=== PATIENT | female | born 1950 | race Two or more races ===

== ENCOUNTER 2017-05-26 15:24 | Emergency (ER) | payer MEDICAID, OTHER ==
[~2017-05-26] VITALS: Ht 160 cm; Wt 81.6 kg
[2017-05-26 15:41] VITALS: BP 138/90
[2017-05-26] MEDS ORDERED: KETOROLAC TROMETH 60MG/2ML VIAL IM ONE (17:00)
[2017-05-26] MEDS ORDERED: LORazepam 2MG/ML-1ML VIAL IM ONE (17:30)
== END 2017-05-26 18:25 | disposition home or self-care (01) ==
LOC: EDBD 15:24 → ER 15:33
DX: S70.02XA Contusion of left hip, initial encounter (principal); M54.2 Cervicalgia; M47.892 Other spondylosis, cervical region; M19.90 Unspecified osteoarthritis, unspecified site; Z88.6 Allergy status to analgesic agent; W19.XXXA Unspecified fall, initial encounter; Y93.89 Activity, other specified; Y99.8 Other external cause status; Y92.89 Other specified places as the place of occurrence of the external cause
CPT/HCPCS: 70450; 72125; 73502; 73562; 96372; 99284; J1885

== ENCOUNTER 2017-06-18 16:21 | Emergency (ER) | payer MEDICAID ==
[~2017-06-18] VITALS: Ht 160 cm; Wt 84.4 kg
[2017-06-18 16:57] VITALS: BP 137/85
[2017-06-18 17:05] LABS: Basophils # (auto) 0 uL; Basophils % (auto) 0.4 % (0.0-2.0); Eosinophils # (auto) 0.2 uL; Eosinophils % (auto) 2.4 % (0.0-7.0); Hematocrit 42.8 % (36.0-46.0); Hemoglobin 14.6 g/dL (12.2-16.2); Lymphocytes # (auto) 2.6 uL; Lymphocytes % (auto) 27.5 % (10.0-50.0); Mean Corpuscular Hemoglobin 33.1 pg (28.0-32.0); Mean Corpuscular Hgb Conc. 34.2 g/dL (32.0-36.0); Mean Corpuscular Volume 96.7 fL (80.0-100.0); Mean Platelet Volume 7.4 fL (6.9-10.8); Monocytes # (auto) 0.5 uL; Monocytes % (auto) 5.7 % (0.0-12.0); Nucleated Red Blood Cells % 0.1 %; Platelet Count (auto) 223 10^3/uL (140-450); Red Cell Distribution Width 13.2 % (11.8-14.3); White Blood Cell 9.3 10^3/uL (4.4-10.8)
[2017-06-18 17:20] LABS: Albumin 3.9 g/dL (3.4-5.0); INR 1.05 (0.9-1.15); Partial Thromboplastin Time 29.5 sec (22.64-33.71); Potassium 3.7 mmol/L (3.5-5.1); Prothrombin Time 11.5 sec (9.37-12.3)
[2017-06-18 17:22] LABS: BUN/Creatinine Ratio 17.1
[2017-06-18 17:24] LABS: Bilirubin, Total 1.1 mg/dL (0.2-1.0); Total Protein 7.5 g/dL (6.4-8.2)
== END 2017-06-18 19:24 | disposition home or self-care (01) ==
LOC: ER 16:30
DX: M79.605 Pain in left leg (principal); Z90.49 Acquired absence of other specified parts of digestive tract; Z88.6 Allergy status to analgesic agent; W01.0XXA Fall on same level from slipping, tripping and stumbling without subsequent striking against object, initial encounter; Y93.89 Activity, other specified; Y99.8 Other external cause status; Y92.89 Other specified places as the place of occurrence of the external cause
CPT/HCPCS: 36415; 80053; 85025; 85379; 85610; 85730; 93971

== ENCOUNTER 2025-06-20 08:38 | Emergency (ER) | payer OTHER, MEDICAID ==
[~2025-06-20] VITALS: Ht 160 cm; Wt 77.3 kg
--- NOTE | 2025-06-20 09:14 | ED.PDOC ---
Musculoskeletal HPI Comments A 74 YEAR OLD FEMALE PRESENTS TO THE ED WITH COMPLAINT OF KNEE PAIN. PATIENT REPORTS THAT SHE HAS BEEN EXPERIENCING LEFT SIDED KNEE PAIN AFTER HER DOG HAD RAN INTO HER LEG YESTERDAY, CAUSING HER TO TWIST HER KNEE. PATIENT DENIES ANY FALL INJURY, NUMBNESS, WEAKNESS, TINGLING, SHORTNESS OF BREATH, CHEST PAIN, ABDOMINAL PAIN, NAUSEA, VOMITING, HEADACHE, OR OTHER COMPLAINTS. NO OTHER SYMPTOMS OR MODIFYING FACTORS AT THIS TIME. PATIENT IS ALERT, ORIENTED X 4, AND HAS STEADY GAIT. Chief Complaint: Lower Extremity Time Seen by MD: 09:13 Primary Care Provider: TEMITOPE Reviewed Notes: Nurses Notes, Medications, Allergies Allergies: Coded Allergies: Codeine (Verified Allergy, Unknown, 06/20/17) Home Meds Active Scripts Acetaminophen (Tylenol Extra Strength Fo) 500 Mg Tab, 1000 MG PO BID, #60 TAB Prov:MARY ALICE RAZA 06/20/25 Information Source: Patient Mode of Arrival: Ambulatory Location: Left Extremity Location: Knee Timing: Days Prehospital treatment: None Severity: Moderate Able to Move Extremity: Yes Bear Weight: Limited Pain: Moderate Mechanism: Twisting Circumstances: Other (DOG RAN INTO HER) Onset of Symptoms: After Trauma Symptoms: Swelling, Pain DVT Risk Factors: NONE Last Tetanus: Unknown Associated signs and symptoms: None Past Medical History PAST MEDICAL HISTORY: Denies Surgical History: Cholecystectomy 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 Family History Family History: Reviewed,noncontributory to illness Social History Smoker: Non-Smoker Alcohol: Denies ETOH Use Drugs: Denies Drug Use Lives In: Home Constitutional: denies: chills, diaphoresis, fatigue, fever, malaise, sweats, weakness, others EENTM: denies: blurred vision, double vision, ear bleeding, ear discharge, ear drainage, ear pain, ear ringing, eye pain, eye redness, hearing loss, mouth pain, mouth swelling, nasal discharge, nose bleeding, nose congestion, nose pain, photophobia, tearing, throat pain, throat swelling, voice changes, others Respiratory: denies: cough, hemoptysis, orthopnea, SOB at rest, shortness of breath, SOB with excertion, stridor, wheezing, others Cardiovascular: denies: chest pain, dizzy spells, diaphoresis, Dyspnea on exertion, edema, irregular heart beat, left arm pain, lightheadedness, palpitations, PND, syncope, others Gastrointestinal: denies: abdomen distended, abdominal pain, blood streaked bowels, constipated, diarrhea, dysphagia, difficulty swallowing, hematemesis, melena, nausea, poor appetite, poor fluid intake, rectal bleeding, rectal pain, vomiting, others Genitourinary: denies: abnormal vagina bleeding, burning, dyspareunia, dysuria, flank pain, frequency, hematuria, incontinence, pain, , vagina discharge, urgency, others Neurological: denies: dizziness, fainting, headache, left sided numbness, left sided weakness, numbness, paresthesia, pre-existing deficit, right sided numbness, right sided weakness, seizure, speech problems, tingling, tremors, weakness, others Musculoskeletal: reports: joint pain, others (LT KNEE PAIN); denies: back pain, gout, joint swelling, muscle pain, muscle stiffness, neck pain Integumetry: denies: bruises, change in color, change in hair/nails, dryness, laceration, lesions, lumps, rash, wounds, others Allergic/Immunocompromised: denies: Difficulty Healing, Frequent Infections, Hives, Itching, others Hematologic/Lymphatic: denies: anemia, blood clots, easy bleeding, easy bruising, swollen glands, others Endocrine: denies: excessive hunger, excessive sweating, excessive thirst, excessive urination, flushing, intolerance to cold, intolerance to heat, unexplained weight gain, unexplained weight loss, others Psychiatric: denies: anxiety, bipolar disorder, depression, hopeless, panic disorder, schizophrenia, sleepless, suicidal, others All Other Systems: Reviewed and Negative Physical Exam General Appearance: No Apparent Distress, Normal HEENT: Normal ENT Inspection, PERRL/EOMI, Pharynx Normal, TMs Normal Neck: Full Range of Motion, Non-Tender, Normal, Normal Inspection Respiratory: Chest Non-Tender, Lungs Clear, No Accessory Muscle Use, No Respiratory Distress, Normal Breath Sounds Cardiovascular: No Edema, No JVD, No Murmur, No Gallop, Normal Peripheral Pulses, Regular Rate/Rhythm Breast Exam: Deferred Gastrointestinal: No Organomegaly, Non Tender, No Pulsatile Mass, Normal Bowel Sounds, Soft Genitalia: Deferred Pelvic: Deferred Rectal: Deferred Extremities: Decreased range of motion (SLIGHTLY ), No calf tenderness, Normal capillary refill, No pedal edema, Tender (ON LEFT KNEE, NO BONY TENDERNESS, S WELLING AND DEFORMITY. ) Musculoskeletal : Apperance: Normal Neurologic: Alert, family and marriage counsellor II-XII nml as Tested, No Motor Deficits, Normal Affect, Normal Mood, No Sensory Deficits Cerebellar Function: Normal Reflexes: Normal Skin: Dry, Normal Color, Warm Peripheral Pulses: 2+ carotid (R), 2+ carotid (L), 2+ dorsalis pedis (R), 2+ dorsalis pedis (L) Lymphatic: No Adenopathy Was a procedure done? Was a procedure done?: No Differential Diagnosis EXT Differential Diagnosis: Fracture, Sprain, Contusion, Strain, Arthritis, Bursitis X-Ray, Labs, Meds, VS Vital Signs Date Time Temp Pulse Resp B/P (MAP) Pulse Ox O2 Delivery O2 Flow Rate FiO2 06/20/25 09:45 65 18 97 Room Air 06/20/25 09:45 97.1 65 18 163/79 (107) 97 97.1 06/20/25 08:40 97.9 75 18 148/91 97 97.9 Current Medications Medications (Trade) Dose Ordered Sig/Franklin Route Start Time Stop Time Status Last Admin Acetaminophen (Tylenol Tablet Or Capsule) 1,000 mg ONCE ONCE PO 06/20/25 09:15 06/20/25 09:16 DC 06/20/25 09:31 [place] [address] Ph: [phone] DIAGNOSTIC IMAGING Diagnostic Imaging Report : [id number] Signed PATIENT: SHAAN IVY ACCT: [id number] UNIT: [id number] : 1950 LOC: ER ROOM / BED: / AGE / SEX: 74 / F ADM STATUS: REG ER SERVICE 0911 ORDERING PHYSICIAN: MARY ALICE RAZA PROCEDURE(s): LKNE3 - L KNEE 3V XRAY REASON: INJURY ORDER NUMBER(s): [id number], ACCESSION NUMBER(s): [id number] EXAM: XY L KNEE 3V XRAY CLINICAL INDICATION: INJURY TECHNIQUE: XY L KNEE 3V XRAY Comparison: None FINDINGS/IMPRESSION: There is no evidence of acute fracture or dislocation. Moderate left knee tricompartmental joint space narrowing The alignment is anatomical. There is no radiopaque foreign body. ATED BY: RYAN DAHL MD DICTATED DATE/TIME: 06/20/25942 SIGNED BY: RYAN DAHL MD SIGNED DATE/TIME: 06/20/25942 CC: X-Ray, Labs, Meds, VS Comment EXTERNAL MEDICAL RECORDS REVIEWED: [NONE] INDEPENDENT HISTORIANS: [NONE] SOCIAL DETERMINANTS OF HEALTH: [NONE] LABS ORDERED: NONE REVIEWED AND INTERPRETED RESULTS: LT KNEE XR IMAGING ORDERED: LT KNEE XR: NO FX AND DISLOCATION, MILD DJD OF LEFT KNEE, READ BY ME, PENDING RADIOLOGIST READING. TREATMENTS ORDERED: TYLENOL 1GM PO PROCEDURES PERFORMED: NONE CRITICAL CARE TIME: NONE I HAVE DISCUSSED THE PATIENT WITH THE ATTENDING PHYSICIAN, DR. TANNER, HE AGREES WITH THE PATIENT'S PLAN OF CARE AND DISPOSITION. BASED ON HISTORY OF PRESENT ILLNESS, AND PHYSICAL EXAM, PATIENT WILL BE DISCHARGED HOME. DISCUSSED PLAN FOR DISCHARGE HOME WITH RX [TYLENOL 1000MG]. MEDICATION WARNINGS GIVEN. SHARED DECISION MAKING: DISCUSSED WITH PATIENT THAT THEIR WORKUP WAS NORMAL. LILLIAM MOJICA INSTRUCTED TO FOLLOW UP WITH PRIMARY CARE PROVIDER IN 1-2 DAYS FOR RE- EVALUATION OF SYMPTOMS. PATIENT VERBALIZES UNDERSTANDING TO RETURN TO ED FOR NEW OR WORSENING SYMPTOMS OR IF FOLLOW UP WITH PCP CANNOT BE OBTAINED. PATIENT FEELS COMFORTABLE GOING HOME AT THIS TIME. ALL QUESTIONS ADDRESSED AT TIME OF DISCHARGE. Time of 1ST Reevaluation: 09:45 Reevaluation 1ST: Improved Patient Education/Counseling: Diagnosis, Treatment, Need For Follow Up Family Education/Counseling: Diagnosis, Treatment, No Family Present Medical Screening: No EMC Exist At This Time Departure 1 Departure Time of Disposition: 09:45 Impression: Primary Impression: Sprain of left knee Qualified Codes: S83.8X2A - Sprain of other specified parts of left knee, initial encounter Additional Impression: Degenerative joint disease of left knee Qualified Codes: M17.12 - Unilateral primary osteoarthritis, left knee Disposition: HOME / SELF CARE / HOMELESS Condition: Stable Additional Instructions: FOLLOW-UP WITH PCP IN 1 TO 2 DAYS. TAKE MEDICATIONS PRESCRIBED. RETURN TO ED FOR ANY NEW OR WORSENING SYMPTOMS. e-Prescriptions Acetaminophen (Tylenol Extra Strength Fo) 500 Mg Tab 1000 MG PO BID, #60 TAB Prov: MARY ALICE RAZA 06/20/25 Discharged With: Self Critical Care Note Critical Care Time?: No Stability Stability form required: No Heart Score Heart Score: Heart Score Response (Comments) Value History N/A 0 EKG N/A 0 Age N/A 0 Risk Factors N/A 0 Troponin N/A 0 Total 0 I personally scribed for MARY ALICE RAZA ([email or web address]) on 06/20/25 at 09:14. Electronically submitted by Jayson Pinto ([email or web address]). I personally scribed for JIMMY TANNER MD ([email or web address]) on 06/20/25 at 09:47. Electronically submitted by Jayson Pinto ([email or web address]). MARY ALICE RAZA Jun 20, 2025 09:14 JIMMY TANNER MD Jun 20, 2025 09:47
[2025-06-20] MEDS: ACETAMINOPHEN 500 MG TAB or CAP PO ONE (09:31)
[2025-06-20 09:45] VITALS: BP 163/79; PULSE 65; RESP 18; TEMP 97.1; O2SAT 97
[2025-06-20] MEDS ORDERED: ACET-1304 PO (09:45)
--- NOTE | 2025-06-20 09:46 | DVH ---
EXAM: XY L KNEE 3V XRAY CLINICAL INDICATION: INJURY TECHNIQUE: XY L KNEE 3V XRAY Comparison: None FINDINGS/IMPRESSION: There is no evidence of acute fracture or dislocation. Moderate left knee tricompartmental joint space narrowing The alignment is anatomical. There is no radiopaque foreign body.
== END 2025-06-20 09:55 | disposition home or self-care (01) ==
LOC: ER 08:38
DX: M25.562 Pain in left knee (principal); Z88.5 Allergy status to narcotic agent; Z90.49 Acquired absence of other specified parts of digestive tract; X50.1XXA Overexertion from prolonged static or awkward postures, initial encounter; Y93.89 Activity, other specified; Y92.89 Other specified places as the place of occurrence of the external cause; Y99.8 Other external cause status
CPT/HCPCS: 73562

== ENCOUNTER 2025-07-28 01:06 | Inpatient (IN) | payer OTHER, MEDICAID ==
[2025-07-28] VITALS (8 sets, daily range): BP systolic 109–154; BP diastolic 65–97; PULSE 58–70; RESP 16–20; TEMP 97.2–98.1; O2SAT 93–100
[~2025-07-28] VITALS: Ht 160 cm; Wt 85.5 kg
[~2025-07-28 01:06] MED LIST: ACET-1304 PO
[2025-07-28 02:05] LABS: Hematocrit 38.5 % (36.0-46.0); Hemoglobin 13.4 g/dL (12.2-16.2); Mean Corpuscular Hemoglobin 32.7 pg (28.0-32.0); Mean Corpuscular Volume 93.7 fL (80.0-100.0); Nucleated Red Blood Cells % 0.0 %
[2025-07-28 02:25] LABS: Alanine Aminotransferase 38 U/L (7-40); Albumin 4.2 g/dL (3.2-4.8); Alkaline Phosphatase 95 U/L (46-116); Anion Gap 8 (5-15); BUN/Creatinine Ratio 17.1 (10.0-20.0); Bilirubin, Total 0.9 mg/dL (0.2-1.0); Blood Urea Nitrogen 12 mg/dL (9-23); Calcium 9.1 mg/dL (8.7-10.4); Carbon Dioxide 24 mmol/L (20-31); Chloride 104 mmol/L (98-107); Glucose 109 mg/dL (74-106); Lipase 34 U/L (12-53); Magnesium 1.9 mg/dL (1.6-2.6); Potassium 3.5 mmol/L (3.5-5.1); Sodium 136 mmol/L (136-145); Total Protein 6.9 g/dL (5.7-8.2)
--- NOTE | 2025-07-28 02:43 | ED.PDOC ---
GI ASSESSMENT HPI Comments HPI: Poor Historian. 74-year-old female brought in by her daughter for evaluation of left upper quadrant left lower ribcage pain with the associated nausea and vomiting nonbilious nonbloody. Since she started vomiting she said she started feeling some left upper extremity numbness and tingling but no weakness. Denies any other acute symptoms. Past Medical History: Past Surgical History: Cholecystectomy REVIEW OF SYSTEMS: CONSTITUTIONAL: Denies acute: fever, diaphoresis, chills, generalized weakness. HEAD: Denies acute: headache, photophobia Eyes: Denies acute: Double vision, vision loss, eye pain, eye discharge. EARS: Denies acute: tinnitus, hearing loss, ear discharge, ear pain, THROAT: Denies acute: sore throat, swelling, difficulty swallowing , pain with swallowing, change in voice. NECK: Denies acute: neck pain, neck swelling, stiff neck. HEART: Denies acute : palpitations, LUNGS: Denies acute: SOB, wheezing, cough, hemoptysis ABDOMEN: Denies acute: diarrhea, melena , hematemesis, hematochezia SKIN: Denies acute: rash, redness, lesions, itchiness. EXTREMITIES: Denies acute: calf pain, weakness, denies pain in extremity. Denies acute: Low back pain. Neuro: Denies acute: focal neurological deficit, motor or sensory focal neurological deficit, tremors, seizure like activity, confusion, dizziness, change in mental status, loss of bowel or bladder function, cauda equina like symptoms. : Denies acute: dysuria, hematuria, flank pain, increase in urinary frequency. PSYCH: Denies acute: hallucination, suicidal ideation, homicidal ideation. FEMALE: Denies acute: abnormal vaginal bleeding, foul odor, unusual discharge. PHYSICAL EXAM: General: -----mild---acute distress, awake and alert. Head: normocephalic, atraumatic. No raccoon's eyes, no ramos sign. Neck: supple, trachea is midline, no swelling. Throat: Normal phonation. Eyes:, no erythema, no purulent discharge, no proptosis, no icterus. Heart: regular rate, regular rhythm, no significant murmur appreciated. Lungs: no apparent respiratory distress, Able to speak in full sentences. No wheezing, no rhonchi, no crackles. No stridors Clear to auscultation bilaterally. Abdomen: non tender to palpation, non distended, soft, no guarding, no rebound, + bowel sounds. The area of pain is actually in the mid clavicular lower ribcage area not in the soft tissue of the abdomen but in the ribcage itself. No apparent lesions or redness or swelling or findings to suggest shingles Neuro: Awake, Alert, oriented to name, self, situation, follows commands GCS=15. Speech is normal. Skin: no petechia, no purpura, no cyanosis, non-pale, not jaundice. Lower extremities: --no - Pitting edema no deformity, no focal swelling, no calf TTP. Makes eye contact. moves all four extremities. Face: no apparent facial droop. No CVA tenderness to percussion bilaterally. 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 Although this document has been carefully reviewed, there might still be some phonetic and typographical errors. Occasional wrong-word or "sound-alike" substitutions may have occurred due to the inherent limitations of voice recognition software. These areas are purely typographical due to imperfections of the software programs and do not reflect any compromise in the patient's medical care. Please read the chart carefully and recognize, using context, where these substitutions have occurred. 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 Family History Family History: Reviewed,noncontributory to illness Social History Smoker: Non-Smoker Alcohol: Denies ETOH Use Drugs: Denies Drug Use Lives In: Home GI differential Dx Differential Diagnosis: Other (Ddx include but not limitied to gastritis, musculoskeletal pain, radiculopathy, atypical chest pain, dissection, aneurysm, ACS, unstable angina, hiatal hernia, GERD, anxiety, costochondritis, PE, pneumothroax, neoplasm, cardiac ischemia, drug abuse, anemia.) X-Ray, Labs, Meds, VS Vital Signs Date Time Temp Pulse Resp B/P (MAP) Pulse Ox O2 Delivery O2 Flow Rate FiO2 07/28/25 03:42 68 20 98 Room Air* 0 21 07/28/25 03:38 98.0 68 20 167/76 (106) 98 98.0 07/28/25 01:07 97.0 87 20 167/105 99 97.0 Lab Test 07/28/25 02:55 07/28/25 02:44 07/28/25 01:47 Range/Units Urine Color Colorless Yellow Urine Clarity Turbid H Clear Urine pH 6.5 5.0-9.0 Urine Specific [place] 1.006 1.001-1.035 Urine Protein Negative Negative Urine Ketones Negative Negative Urine Blood Negative Negative /uL Urine Nitrite Negative Negative Urine Bilirubin Negative Negative Urine Urobilinogen Normal Negative mg/dL Urine Leukocyte Esterase 2+ Negative /uL Urine RBC 3 0 - 4 /hpf Urine Microscopic WBC 13 H 0-5 /HPF Urine Squamous Epithelial Cells Mod <5 /hpf Urine Bacteria None seen None Seen /hpf Urine Glucose Normal Normal mg/dL Troponin I High Sensitivity < 3 L < 3 L </=34 ng/L White Blood Count 8.6 4.4-10.8 10^3/uL Red Blood Count 4.11 4.0-5.20 10^6/uL Hemoglobin 13.4 12.2-16.2 g/dL Hematocrit 38.5 36.0-46.0 % Mean Corpuscular Volume 93.7 80.0-100.0 fL Mean Corpuscular Hemoglobin 32.7 H 28.0-32.0 pg Mean Corpuscular Hemoglobin Concent 34.9 32.0-36.0 g/dL Red Cell Distribution Width 13.2 11.8-14.3 % Platelet Count 198 140-450 10^3/uL Mean Platelet Volume 7.4 6.9-10.8 fL Neutrophils (%) (Auto) 60.0 37.0-80.0 % Lymphocytes (%) (Auto) 30.0 10.0-50.0 % Monocytes (%) (Auto) 6.9 0.0-12.0 % Eosinophils (%) (Auto) 2.6 0.0-7.0 % Basophils (%) (Auto) 0.5 0.0-2.0 % Neutrophils # (Auto) 5.2 1.6-8.6 10 ^3/uL Lymphocytes # (Auto) 2.6 0.4-5.4 10 ^3/uL Monocytes # (Auto) 0.6 0-1.3 10 ^3/uL Eosinophils # (Auto) 0.2 0-0.8 10 ^3/uL Basophils # (Auto) 0 0-0.2 10 ^3/uL Nucleated Red Blood Cells 0.0 % Sodium Level 136 136-145 mmol/L Potassium Level 3.5 3.5-5.1 mmol/L Chloride Level 104 98-107 mmol/L Carbon Dioxide Level 24 20-31 mmol/L Anion Gap 8 5-15 Blood Urea Nitrogen 12 9-23 mg/dL Creatinine 0.70 0.550-1.02 mg/dL Glomerular Filtration Rate Calc 92 >90 mL/min BUN/Creatinine Ratio 17.1 10.0-20.0 Serum Glucose 109 H 74-106 mg/dL Lactic Acid Level 1.3 0.4-2.0 mmol/L Calcium Level 9.1 8.7-10.4 mg/dL Magnesium Level 1.9 1.6-2.6 mg/dL Total Bilirubin 0.9 0.2-1.0 mg/dL Aspartate Amino Transferase (AST) 35 13-40 U/L Alanine Aminotransferase (ALT) 38 7-40 U/L Alkaline Phosphatase 95 46-116 U/L Total Protein 6.9 5.7-8.2 g/dL Albumin 4.2 3.2-4.8 g/dL Lipase 34 12-53 U/L Current Medications Medications (Trade) Dose Ordered Sig/Franklin Route Start Time Stop Time Status Last Admin Sodium Chloride 1,000 ml @ 1,000 mls/hr Q1H ONCE IV 07/28/25 02:45 07/28/25 03:44 DC 07/28/25 03:55 Ondansetron HCl (Zofran) 8 mg ONCE ONCE IV 07/28/25 02:45 07/28/25 02:49 DC 07/28/25 03:55 Aspirin (Ecotrin Enteric Coated Tablet) 325 mg ONCE ONCE PO 07/28/25 03:00 07/28/25 03:01 DC 07/28/25 03:55 Acetaminophen/ Hydrocodone Bitart ([place] 5/325MG Tab) 1 tab ONCE ONCE PO 07/28/25 04:00 07/28/25 04:01 DC 07/28/25 04:05 [place] [address] Ph: [phone] DIAGNOSTIC IMAGING Diagnostic Imaging Report : [id number] Signed PATIENT: SHAAN IVY ACCT: [id number] UNIT: [id number] : 1950 LOC: ER ROOM / BED: / AGE / SEX: 74 / F ADM STATUS: REG ER SERVICE 9 ORDERING PHYSICIAN: NASRIN MARTIN DO PROCEDURE(s): ABPL - CT AB PEL WO CON-NO ORAL OR IV REASON: abd pain ORDER NUMBER(s): [id number], ACCESSION NUMBER(s): [id number] Exam: CT CT AB PEL WO CON-NO ORAL OR IV History: abd pain Comparison Study: None Technique: Multidetector spiral CT of the chest, abdomen and pelvis was performed from lower neck to pubic symphysis Axial, coronal and sagittal multiplanar reformats were performed by the technologist on a separate worksta tion. Radiation Dose : 1. Chest/Abdomen/Pelvis: CTDIvol 10.23 mGy, DLP 531.47 mGy*cm. Findings: Lower neck: Normal thyroid. Lungs: No focal consolidation, pleural effusion or pneumothorax. Heart/Vascular Structures: Normal heart size. No pericardial effusion. Lymph Nodes: No adenopathy Pleura: No pleural effusion or significant pneumothorax. Liver: The liver is normal in size. No focal lesions. Normal hepatic vascular enhancement. Gallbladder and Biliary Tree: Status post cholecystectomy. Spleen: Unremarkable Pancreas: The pancreas is normal in appearance without focal lesions or abnormal enhancement. Adrenal Glands: Unremarkable Kidneys: Kidneys demonstrate normal symmetric enhancement without focal lesions, calculi or hydronephrosis. 5 mm left interpolar likely angiomyolipoma. Bladder: Unremarkable Bowel: The stomach is grossly normal in appearance. Diverticulosis coli without CT evidence of acute diverticulitis. Small bowel and colon are otherwise normal in caliber and distribution. The appendix is normal. Ascites: Absent Lymphadenopathy: No mesenteric, retroperitoneal or periportal lymphadenopathy. Abdominal Wall and Mesentery: Small fat containing umbilical hernia. Vasculature: The visualized abdominal aorta is normal in size and caliber. Atherosclerotic vascular calcifications. Abdominal and pelvic vessels demonstrate normal enhancement. Pelvic Organs: Unremarkable Musculoskeletal: No aggressive focal bony lesions, acute fractures or dislocation. IMPRESSION: 1. No acute findings involving the chest, abdomen or pelvis. 2. Diverticulosis coli without CT evidence of acute diverticulitis. ATED BY: ROBER PAYTON MD DICTATED DATE/TIME: 07/28/25238 SIGNED BY: ROBER PAYTON MD SIGNED DATE/TIME: 07/28/25238 CC: Time of 1ST Reevaluation: 00:00 Reevaluation 1ST: N/A Patient Education/Counseling: Diagnosis, Treatment Family Education/Counseling: Other Comments MDM: patient presented with the above HPI.-left anterior chest pain-----workup was initiated. patient was found with the above mentioned diagnosis. the following medications were ordered: please refer to order lists of meds and tests obtained by myself Dr. Martin. Patient ED course and VS have been stabilized. Patient has been reassessed in the ED and remained in a stable condition. Pertinent incidental findings were discussed with the patient and/or family. Patient/family voices understanding and is agreeable with plan. Patient has been observed in the ED adequate length of time to insure improvement/stability. Escalation of care considered: Consideration of escalation to observation or admission I ordered aspirin and nitroglycerin but I was informed by the nurse Perlita that the patient refused nitroglycerin. Patient was given [place] for pain control. Patient was ADMITTED to the medicine team for further evaluation and treatment of their presentation. All the reports of any imaging studies that were ordered by myself were reviewed by myself. Departure 1 Departure Time of Disposition: 02:54 Impression: Primary Impression: Left-sided chest pain Disposition: ADMITTED INPATIENT [facility]mit to: [facility] Condition: Guarded Additional Instructions: [place] [address] Ph: [phone] DIAGNOSTIC IMAGING Diagnostic Imaging Report : [id number] Signed PATIENT: IVY,SHAAN Velasquez ACCT: [id number] UNIT: [id number] : 1950 LOC: ER ROOM / BED: / AGE / SEX: 74 / F ADM STATUS: REG ER SERVICE 0130 ORDERING PHYSICIAN: NASRIN MARTIN DO PROCEDURE(s): ABPL - CT AB PEL WO CON-NO ORAL OR IV REASON: abd pain ORDER NUMBER(s): [id number], ACCESSION NUMBER(s): [id number] Exam: CT CT AB PEL WO CON-NO ORAL OR IV History: abd pain Comparison Study: None Technique: Multidetector spiral CT of the chest, abdomen and pelvis was performed from lower neck to pubic symphysis Axial, coronal and sagittal multip lanar reformats were performed by the technologist on a separate workstation. Radiation Dose : 1. Chest/Abdomen/Pelvis: CTDIvol 10.23 mGy, DLP 531.47 mGy*cm. Findings: Lower neck: Normal thyroid. Lungs: No focal consolidation, pleural effusion or pneumothorax. Heart/Vascular Structures: Normal heart size. No pericardial effusion. Lymph Nodes: No adenopathy Pleura: No pleural effusion or significant pneumothorax. Liver: The liver is normal in size. No focal lesions. Normal hepatic vascular enhancement. Gallbladder and Biliary Tree: Status post cholecystectomy. Spleen: Unremarkable Pancreas: The pancreas is normal in appearance without focal lesions or abnormal enhancement. Adrenal Glands: Unremarkable Kidneys: Kidneys demonstrate normal symmetric enhancement without focal lesions, calculi or hydronephrosis. 5 mm left interpolar likely angiomyolipoma. Bladder: Unremarkable Bowel: The stomach is grossly normal in appearance. Diverticulosis coli without CT evidence of acute diverticulitis. Small bowel and colon are otherwise normal in caliber and distribution. The appendix is normal. Ascites: Absent Lymphadenopathy: No mesenteric, retroperitoneal or periportal lymphadenopathy. Abdominal Wall and Mesentery: Small fat containing umbilical hernia. Vasculature: The visualized abdominal aorta is normal in size and caliber. Atherosclerotic vascular calcifications. Abdominal and pelvic vessels demonstrate normal enhancement. Pelvic Organs: Unremarkable Musculoskeletal: No aggressive focal bony lesions, acute fractures or dislocation. IMPRESSION: 1. No acute findings involving the chest, abdomen or pelvis. 2. Diverticulosis coli without CT evidence of acute diverticulitis. ATED BY: ROBER PAYTON MD DICTATED DATE/TIME: 07/28/25238 SIGNED BY: ROBER PAYTON MD SIGNED DATE/TIME: 07/28/25238 CC: Discharged With: Self Critical Care Note Critical Care Time?: No Heart Score Heart Score: Heart Score Response (Comments) Value History Slightly Suspicious 0 EKG Normal 0 Age >65 2 Risk Factors 1 or 2 risk factors 1 Troponin Normal limit 0 Total 3 NASRIN MARTIN DO Jul 28, 2025 02:43
[2025-07-28] MEDS: NITROGLYCERIN 0.4 MG SL TAB SL ONE (03:18)
[2025-07-28 03:28] LABS: Urine Protein, UAD Negative (Negative)
[2025-07-28] MEDS: ASPirin-EC 325mg tab PO ONE (03:55)
[2025-07-28] MEDS: ONDANSETRON HCL 4 MG/2 ML VIAL IV ONE (03:55)
[2025-07-28] MEDS: SODIUM CHLORIDE 0.9% 1,000 ML IV ONE (03:55)
[2025-07-28] MEDS: HYDROcodone-ACET 5/325MG TAB PO ONE (04:05)
[2025-07-28] MEDS: SODIUM CHLORIDE 0.9% 1,000 ML IV SCH (04:30)
[2025-07-28] MEDS ORDERED: ONDANSETRON HCL 4 MG/2 ML VIAL IV PRN (04:30)
--- NOTE | 2025-07-28 05:03 | DVHHP2 ---
History of Present Illness Reason for Visit: Left-sided chest pain History of Present Illness The patient is a 74-year-old female who denies past medical history presented to [facility] ED accompanied by granddaughter with complaint of epigastric abdominal pain. Patient reports symptoms progressively get worse with left-sided chest pain, left upper extremity numbness, tingling, associated with nausea and vomiting. Patient was seen and evaluated in the ED, laboratory data shows WBC 8.8, platelets 198, sodium 136, potassium 3.5, BUN 12, creatinine 0.70, glucose 109, calcium 9.1, lactic acid 1.3, lipase 34, troponin < 3, blood pressure 167/76, heart rate 68, temperature 98.0 F, O2 saturation 98% on room air. Please see medication orders section in the computer. On my assessment, patient denied chest pain at this moment, no headache, dizziness, diaphoresis, no shortness of breaths, no abdominal pain, nausea or vomiting at this moment, no fever, chills. Patient was admitted for further evaluation and medical management. Past Medical History Denies past medical history Past Surgical History Cholecystectomy Family History Reviewed, noncontributory to the management of this case. Past Social History The patient lives at home, denies smoking, alcohol or illicit drugs abuse. Review of Systems Constitutional: Yes: Weakness; No: Fever, Chills, Sweats, Malaise, Other Eyes: No: Pain, Vision change, Conjunctivae inflammation, Eyelid inflammation, Other, Redness ENT: No: Ear pain, Ear discharge, Nose pain, Nose discharge, Nose congestion, Mouth pain, Mouth swelling, Throat pain, Throat swelling, Other Respiratory: No: Cough, Dry, Shortness of breath, SOB with excertion, Wheezing, Hemoptysis, Pleuritic Pain, Sputum, Wheezing, Other Cardiovascular: Chest Pain; No: Palpitations, Orthopnea, Paroxysmal Noc. Dyspnea, Edema, Lt Headedness, Other Gastrointestinal: Nausea, Vomiting; No: Abdominal Pain, Diarrhea, Constipation, Melena, Hematochezia, Other Genitourinary: No Dysuria, No Frequency, No Incontinence, No Hematuria, No Retention, No Other Musculoskeletal: No: other, neck pain, shoulder pain, arm pain, back pain, hand pain, leg pain, foot pain Skin: No: Rash, Lesions, Jaundice, Bruising, Other Neurological: No: Weakness, Numbness, Incoordination, Change in speech, Confusion, Seizures, Other Allergies: Coded Allergies: Codeine (Verified Allergy, Unknown, 06/20/17) Medications Current Medications Medications Dose Ordered Sig/[place] Route Start Time Stop Time Status Last Admin Dose Admin Aspirin 81 mg DAILY PO 07/28/25 10:00 Sodium Chloride 1,000 ml @ 60 mls/hr [id number] IV 07/28/25 04:30 Acetaminophen/ Hydrocodone Bitart 1 tab Q4HP PRN PO 07/28/25 04:30 Ondansetron HCl 4 mg Q4HP PRN IV 07/28/25 04:30 Docusate Sodium 100 mg BIDPRN PRN PO 07/28/25 04:30 Acetaminophen 650 mg Q6HP PRN PO 07/28/25 04:30 Exam Vital Signs Vital Signs Date Time Temp Pulse Resp B/P (MAP) Pulse Ox O2 Delivery O2 Flow Rate FiO2 07/28/25 03:42 68 20 98 Room Air* 0 21 07/28/25 03:38 98.0 167/76 (106) 98.0 General Appearance: Alert, Oriented X3, Cooperative, No acute distress HEENT: Atraumatic, PERRLA, EOMI, Mucous membr. moist/pink Respiratory: Normal air movement Cardiovascular: Regular rate, Normal S1, Normal S2, No murmurs Abdominal: Normal bowel sounds, Soft, No tenderness, No hepatospenomegaly, No masses Extremities: No clubbing, No cyanosis, No edema, Normal pulses, No tenderness/swelling Skin: No rashes, No significant lesion Neuro: Normal speech, Normal tone, Sensation intact, Cranial nerves 3-12 NL, Reflexes 2+, Other (Generalized weakness) Psych/Mental Status: Mental status NL, Mood NL Labs/Xrays Labs Test 07/28/25 02:55 07/28/25 02:44 07/28/25 01:47 Range/Units Urine Color Colorless Yellow Urine Clarity Turbid H Clear Urine pH 6.5 5.0-9.0 Urine Specific [place] 1.006 1.001-1.035 Urine Protein Negative Negative Urine Ketones Negative Negative Urine Blood Negative Negative /uL Urine Nitrite Negative Negative Urine Bilirubin Negative Negative Urine Urobilinogen Normal Negative mg/dL Urine Leukocyte Esterase 2+ Negative /uL Urine RBC 3 0 - 4 /hpf Urine Microscopic WBC 13 H 0-5 /HPF Urine Squamous Epithelial Cells Mod <5 /hpf Urine Bacteria None seen None Seen /hpf Urine Glucose Normal Normal mg/dL Troponin I High Sensitivity < 3 L </=34 ng/L White Blood Count 8.6 4.4-10.8 10^3/uL Red Blood Count 4.11 4.0-5.20 10^6/uL Hemoglobin 13.4 12.2-16.2 g/dL Hematocrit 38.5 36.0-46.0 % Mean Corpuscular Volume 93.7 80.0-100.0 fL Mean Corpuscular Hemoglobin 32.7 H 28.0-32.0 pg Mean Corpuscular Hemoglobin Concent 34.9 32.0-36.0 g/dL Red Cell Distribution Width 13.2 11.8-14.3 % Platelet Count 198 140-450 10^3/uL Mean Platelet Volume 7.4 6.9-10.8 fL Neutrophils (%) (Auto) 60.0 37.0-80.0 % Lymphocytes (%) (Auto) 30.0 10.0-50.0 % Monocytes (%) (Auto) 6.9 0.0-12.0 % Eosinophils (%) (Auto) 2.6 0.0-7.0 % Basophils (%) (Auto) 0.5 0.0-2.0 % Neutrophils # (Auto) 5.2 1.6-8.6 10 ^3/uL Lymphocytes # (Auto) 2.6 0.4-5.4 10 ^3/uL Monocytes # (Auto) 0.6 0-1.3 10 ^3/uL Eosinophils # (Auto) 0.2 0-0.8 10 ^3/uL Basophils # (Auto) 0 0-0.2 10 ^3/uL Nucleated Red Blood Cells 0.0 % Sodium Level 136 136-145 mmol/L Potassium Level 3.5 3.5-5.1 mmol/L Chloride Level 104 98-107 mmol/L Carbon Dioxide Level 24 20-31 mmol/L Anion Gap 8 5-15 Blood Urea Nitrogen 12 9-23 mg/dL Creatinine 0.70 0.550-1.02 mg/dL Glomerular Filtration Rate Calc 92 >90 mL/min BUN/Creatinine Ratio 17.1 10.0-20.0 Serum Glucose 109 H 74-106 mg/dL Lactic Acid Level 1.3 0.4-2.0 mmol/L Calcium Level 9.1 8.7-10.4 mg/dL Magnesium Level 1.9 1.6-2.6 mg/dL Total Bilirubin 0.9 0.2-1.0 mg/dL Aspartate Amino Transferase (AST) 35 13-40 U/L Alanine Aminotransferase (ALT) 38 7-40 U/L Alkaline Phosphatase 95 46-116 U/L Total Protein 6.9 5.7-8.2 g/dL Albumin 4.2 3.2-4.8 g/dL Lipase 34 12-53 U/L PATIENT: SHAAN IVY ACCT: [id number] UNIT: [id number] : 1950 LOC: ER ROOM / BED: / AGE / SEX: 74 / F ADM STATUS: REG ER SERVICE 0130 ORDERING PHYSICIAN: NASRIN MARTIN DO PROCEDURE(s): ABPL - CT AB PEL WO CON-NO ORAL OR IV REASON: abd pain ORDER NUMBER(s): [id number], ACCESSION NUMBER(s): [id number] Exam: CT CT AB PEL WO CON-NO ORAL OR IV History: abd pain Comparison Study: None Technique: Multidetector spiral CT of the chest, abdomen and pelvis was performed from lower neck to pubic symphysis Axial, coronal and sagittal multiplanar reformats were performed by the technologist on a separate workstation. Radiation Dose: 1. Chest/Abdomen/Pelvis: CTDIvol 10.23 mGy, DLP 531.47 mGy*cm. Findings: Lower neck: Normal thyroid. Lungs: No focal consolidation, pleural effusion or pneumothorax. Heart/Vascular Structures: Normal heart size. No pericardial effusion. Lymph Nodes: No adenopathy Pleura: No pleural effusion or significant pneumothorax. Liver: The liver is normal in size. No focal lesions. Normal hepatic vascular enhancement. Gallbladder and Biliary Tree: Status post cholecystectomy. Spleen: Unremarkable Pancreas: The pancreas is normal in appearance without focal lesions or abnormal enhancement. Adrenal Glands: Unremarkable Kidneys: Kidneys demonstrate normal symmetric enhancement without focal lesions, calculi or hydronephrosis. 5 mm left interpolar likely angiomyolipoma. Bladder: Unremarkable Bowel: The stomach is grossly normal in appearance. Diverticulosis coli without CT evidence of acute diverticulitis. Small bowel and colon are otherwise normal in caliber and distribution. The appendix is normal. Ascites: Absent Lymphadenopathy: No mesenteric, retroperitoneal or periportal lymphadenopathy. Abdominal Wall and Mesentery: Small fat containing umbilical hernia. Vasculature: The visualized abdominal aorta is normal in size and caliber. Atherosclerotic vascular calcifications. Abdominal and pelvic vessels demonstrate normal enhancement. Pelvic Organs: Unremarkable Musculoskeletal: No aggressive focal bony lesions, acute fractures or dislocation. IMPRESSION: 1. No acute findings involving the chest, abdomen or pelvis. 2. Diverticulosis coli without CT evidence of acute diverticulitis. SEPSIS Sepsis Screen Date sepsis recognized/suspect: Jul 28, 2025 Time Sepsis recognized/suspect: 011 Recent Procedure: No On Antibiotic Therapy: No Respiratory Rate >20: No Heart Rate >90: No Temp<36 C (96.8 F) or >38.3 C: No SBP <90 or MAP <65 mmHG: No New Acute Mental Status Change: No Is the patient on CPAP, BIPAP,: No Physician Orders Fixture Maker (07/28/25 ) Heplock Iv (07/28/25 ) Stroke Assessment (07/28/25 01:30) Neurological Assessment (07/28/25 01:30) Electrocardigram (07/28/25 01:30) Ct Ab Pel Wo Con-No Oral Or Iv (07/28/25 01:30) Troponin-I Hs (07/28/25 04:30) Aspirin Tablet (07/28/25 10:00) Allergies (07/28/25 04:27) Code Status (07/28/25 04:27) Sodium Chloride 0.9% (07/28/25 04:30) Oxygen Per Hour (07/28/25 04:27) Hydrocodone-Acet 5/325mg Tab (Lyman 5/32 (07/28/25 04:30) Ondansetron Hcl (Zofran) (07/28/25 04:30) Docusate Sodium Capsule (Colace Capsule) (07/28/25 04:30) Complete Blood Count (07/29/25 04:00) Comprehensive Metabolic Panel (07/29/25 04:00) Cardiac Diet-2gna,Lofat,Lochol (07/28/25 Breakfast) Condition: Serious (07/28/25 04:27) Acetaminophen Tablet (Tylenol Tablet) (07/28/25 04:30) Bedrest With Bathroom Privileg (07/28/25 04:27) Maintain Bed Rest (07/28/25 04:27) Sequential Compression Device (07/28/25 ) Admit (07/28/25 05:02) Nitroglycerin Sublingual (Ntrostat Subli (07/28/25 05:15) Morphine Sulfate Injection (07/28/25 05:15) Stat Ekg For Chest Pain (07/28/25 05:02) Notify Md Of Changes From Base (07/28/25 05:02) Lone Lead Lineman For 24 Hours (07/28/25 05:02) Emergency Dysrhythmia Protocol (07/28/25 05:02) Rhythm Strips Once Every Shift (07/28/25 05:02) Oxygen By Nasal Cannula (07/28/25 05:02) Vital Signs Date Time Temp Pulse Resp B/P (MAP) Pulse Ox O2 Delivery O2 Flow Rate FiO2 07/28/25 03:42 68 20 98 Room Air* 0 21 07/28/25 03:38 98.0 68 20 167/76 (106) 98 98.0 07/28/25 01:07 97.0 87 20 167/105 99 97.0 Laboratory Tests Test 07/28/25 01:47 Lactic Acid Level 1.3 mmol/L (0.4-2.0) White Blood Count 8.6 10^3/uL (4.4-10.8) Medications Medications Dose Ordered Sig/[place]lin Route Start Time Stop Time Status Last Admin Dose Admin Acetaminophen/ Hydrocodone Bitart 1 tab ONCE ONCE PO 07/28/25 04:00 07/28/25 04:01 DC 07/28/25 04:05 1 TAB Aspirin 325 mg ONCE ONCE PO 07/28/25 03:00 07/28/25 03:01 DC 07/28/25 03:55 325 MG Ondansetron HCl 8 mg ONCE ONCE IV 07/28/25 02:45 07/28/25 02:49 DC 07/28/25 03:55 8 MG Sodium Chloride 1,000 ml @ 1,000 mls/hr Q1H ONCE IV 07/28/25 02:45 07/28/25 03:44 DC 07/28/25 03:55 1,000 MLS/HR Assessment/Plan Assessment/Plan Left-sided chest pain Acute abdominal pain Hypertensive urgency Generalized weakness Plan 1. Admit to telemetry unit 2. Breathing treatment 3. Pain control management 4. Management of fluids and electrolytes 5. Consultation for hospitalist 6. Diagnostic tests chest x-ray 7. DVT prophylaxis-on aspirin 8. Repeat labs CBC, CMP in a.m. 9. Continue with current medical management 10. Treatment plan discussed with patient/granddaughter and RN. Patient/granddaughter verbalized understanding. Plan discussed with: Patient, Daughter (Granddaughter), Other (RN) My Orders Orders - TYE KUO DNP Procedure Category Date Status Time Aspirin Tablet PHA 07/28/25 In Process 10:00 Allergies HAMIDA 07/28/25 In Process 04:27 Code Status CODE 07/28/25 Transmitted 04:27 Sodium Chloride 0.9% PHA 07/28/25 In Process 04:30 Oxygen Per Hour RT 07/28/25 Transmitted 04:27 Hydrocodone-Acet PHA 07/28/25 In Process 5/325mg Tab (Lyman 04:30 Ondansetron Hcl PHA 07/28/25 In Process (Zofran) 04:30 Docusate Sodium [facility] 07/28/25 In Process Capsule (Colace 04:30 Complete Blood Count LAB 07/29/25 Verified 04:00 Comprehensive LAB 07/29/25 Verified Metabolic Panel 04:00 Cardiac DIET 07/28/25 Transmitted Diet-2gna,Lofat,Lochol Breakfast Condition: Serious [facility] 07/28/25 In Process 04:27 Acetaminophen Tablet PHA 07/28/25 In Process (Tylenol Tablet) 04:30 Bedrest With Bathroom [facility] 07/28/25 In Process Privileg 04:27 Maintain Bed Rest [facility] 07/28/25 In Process 04:27 Sequential [facility] 07/28/25 In Process Compression Device Admit ADMIT 07/28/25 Verified 05:02 Nitroglycerin [facility] 07/28/25 Verified Sublingual (Ntrostat 05:15 Morphine Sulfate PHA 07/28/25 Verified Injection 05:15 Stat Ekg For Chest [facility] 07/28/25 Verified Pain 05:02 Notify Of Changes [facility] 07/28/25 Verified From Base 05:02 Lone Lead Lineman For [facility] 07/28/25 Verified 24 Hours 05:02 Emergency Dysrhythmia [facility] 07/28/25 Verified Protocol 05:02 Rhythm Strips Once [facility] 07/28/25 Verified Every Shift 05:02 Oxygen By Nasal RT 07/28/25 Verified Cannula 05:02 Problem List: (1) Left-sided chest pain (2) Acute abdominal pain (3) Hypertensive urgency (4) Generalized weakness Date of Service: Jul 28, 2025 Billing Provider: TYE KUO DNP Common Visit Codes: [id number] INP/OBS CARE (HIGH) TYE KUO DNP Jul 28, 2025 05:03
[2025-07-28] MEDS ORDERED: MORPHINE SULFATE INJ 2 MG/ml SYRG IV PRN (05:15)
[2025-07-28] MEDS ORDERED: NITROGLYCERIN 0.4 MG SL TAB SL PRN (05:15)
--- NOTE | 2025-07-28 06:23 | DVH ---
CHEST RADIOGRAPH Indication: cp Technique: Single frontal view of the chest was obtained COMPARISON: None FINDINGS: Lines and Tubes: None Lungs: Clear Pleura: No effusion. No pneumothorax. Cardiomediastinal contours: Unremarkable Bones: Unremarkable IMPRESSION: 1. No acute disease.
[2025-07-28] MEDS: HYDROcodone-ACET 5/325MG TAB PO PRN (10:00)
[2025-07-28] MEDS: DOCUSATE SOD 100 MG CAP PO PRN (18:38)
[2025-07-29] VITALS (7 sets, daily range): BP systolic 114–125; BP diastolic 69–75; PULSE 58–72; RESP 16–17; TEMP 97–97.8; O2SAT 97–98
[2025-07-29 06:23] LABS: Hematocrit 35.7 % (36.0-46.0); Hemoglobin 12.3 g/dL (12.2-16.2); Mean Corpuscular Hemoglobin 32.9 pg (28.0-32.0); Mean Corpuscular Volume 95.3 fL (80.0-100.0); Nucleated Red Blood Cells % 0.1 %
[2025-07-29 06:35] LABS: Alanine Aminotransferase 35 U/L (7-40); Alkaline Phosphatase 73 U/L (46-116); Anion Gap 7 (5-15); BUN/Creatinine Ratio 16.2 (10.0-20.0); Blood Urea Nitrogen 11 mg/dL (9-23); Carbon Dioxide 27 mmol/L (20-31); Chloride 107 mmol/L (98-107); Glucose 89 mg/dL (74-106); Potassium 4.3 mmol/L (3.5-5.1); Sodium 141 mmol/L (136-145); Total Protein 5.9 g/dL (5.7-8.2)
[2025-07-29 06:36] LABS: Albumin 3.6 g/dL (3.2-4.8)
[2025-07-29 06:37] LABS: Bilirubin, Total 0.9 mg/dL (0.2-1.0); Calcium 8.4 mg/dL (8.7-10.4)
--- NOTE | 2025-07-29 10:00 | DVHDS2 ---
Discharge Summary Date of Admission Jul 28, 2025 at 05:02 Date of Discharge: Jul 29, 2025 Labs/Diagnostic Data: Laboratory Results Test 07/29/25 04:39 07/28/25 02:55 07/28/25 02:44 07/28/25 01:47 White Blood Count 5.8 10^3/uL (4.4-10.8) Red Blood Count 3.75 10^6/uL (4.0-5.20) Hemoglobin 12.3 g/dL (12.2-16.2) Hematocrit 35.7 % (36.0-46.0) Mean Corpuscular Volume 95.3 fL (80.0-100.0) Mean Corpuscular Hemoglobin 32.9 pg (28.0-32.0) Mean Corpuscular Hemoglobin Concent 34.6 g/dL (32.0-36.0) Red Cell Distribution Width 12.9 % (11.8-14.3) Platelet Count 175 10^3/uL (140-450) Mean Platelet Volume 7.8 fL (6.9-10.8) Neutrophils (%) (Auto) 52.5 % (37.0-80.0) Lymphocytes (%) (Auto) 36.5 % (10.0-50.0) Monocytes (%) (Auto) 6.7 % (0.0-12.0) Eosinophils (%) (Auto) 3.8 % (0.0-7.0) Basophils (%) (Auto) 0.5 % (0.0-2.0) Neutrophils # (Auto) 3.1 10 ^3/uL (1.6-8.6) Lymphocytes # (Auto) 2.1 10 ^3/uL (0.4-5.4) Monocytes # (Auto) 0.4 10 ^3/uL (0-1.3) Eosinophils # (Auto) 0.2 10 ^3/uL (0-0.8) Basophils # (Auto) 0 10 ^3/uL (0-0.2) Nucleated Red Blood Cells 0.1 % Sodium Level 141 mmol/L (136-145) Potassium Level 4.3 mmol/L (3.5-5.1) Chloride Level 107 mmol/L (98-107) Carbon Dioxide Level 27 mmol/L (20-31) Anion Gap 7 (5-15) Blood Urea Nitrogen 11 mg/dL (9-23) Creatinine 0.68 mg/dL (0.550-1.02) Glomerular Filtration Rate Calc 92 mL/min (>90) BUN/Creatinine Ratio 16.2 (10.0-20.0) Serum Glucose 89 mg/dL (74-106) Calcium Level 8.4 mg/dL (8.7-10.4) Total Bilirubin 0.9 mg/dL (0.2-1.0) Aspartate Amino Transferase (AST) 35 U/L (13-40) Alanine Aminotransferase (ALT) 35 U/L (7-40) Alkaline Phosphatase 73 U/L (46-116) Total Protein 5.9 g/dL (5.7-8.2) Albumin 3.6 g/dL (3.2-4.8) Urine Color Colorless (Yellow) Urine Clarity Turbid (Clear) Urine pH 6.5 (5.0-9.0) Urine Specific [place] 1.006 (1.001-1.035) Urine Protein Negative (Negative) Urine Ketones Negative (Negative) Urine Blood Negative /uL (Negative) Urine Nitrite Negative (Negative) Urine Bilirubin Negative (Negative) Urine Urobilinogen Normal mg/dL (Negative) Urine Leukocyte Esterase 2+ /uL (Negative) Urine RBC 3 /hpf (0 - 4) Urine Microscopic WBC 13 /HPF (0-5) Urine Squamous Epithelial Cells Mod /hpf (<5) Urine Bacteria None seen /hpf (None Seen) Urine Glucose Normal mg/dL (Normal) Troponin I High Sensitivity < 3 ng/L (</=34) Lactic Acid Level 1.3 mmol/L (0.4-2.0) Magnesium Level 1.9 mg/dL (1.6-2.6) Lipase 34 U/L (12-53) Other Laboratory Tests 07/29/25 04:39 Brief Hx & Hospital Course: Hospital course: Chest pain due to musculoskeletal origin Hypertensive urgency Generalized weakness Hypertension 74-year-old female was admitted for chest pain The pain is left-sided at the front of her lower ribcage associated with tenderness to palpation and increase intensity with the breathing Troponins were negative Chest x-ray was normal CT scan of the abdomen and pelvis shows normal findings except for diverticulosis with no diverticulitis EKG was normal Vital signs were normal The patient was given hot packs to the tender area on the left side of the chest Today she is feeling better DC home Continue same home medications Follow up with the primary care physician as soon as possible Condition at Discharge: Stable Final Diagnosis/Problems List Chest pain due to musculoskeletal origin Hypertensive urgency Generalized weakness Hypertension Discharge Disposition: Home SNF Discharge Will this Physician continue t: No Discharge Instruct/Medications Scheduled Acetaminophen (Tylenol Extra Strength Fo), 1,000 MG PO BID Discharge Statement: "Patient was advised to return to the ER or call 911 if any headaches, dizziness, shortness of breath, chest pain, abdominal pain, bleeding, fevers, or worsening of medical condition. Patient was counseled about treatment plan, medications, possible side effects, patientverbalized understanding. All questions were answered to the best of my ability. This discharge took greater then 30 minutes in planning, reviewing documentation, counseling the patient, and discussing with other team members." ASSESSMENT ASSESSMENT Assessment Date of Service: Jul 29, 2025 Billing Provider: FERMIN FELIX MD Common Visit Codes: NOT BILLABLE FERMIN FELIX MD Jul 29, 2025 10:00
[2025-07-29] MEDS: ACETAMINOPHEN 325 MG TAB PO PRN (11:34)
--- NOTE | 2025-07-30 14:05 | ECG ---
[facility] Test Date: 2025-07-28 Test Time: 01:14:59 Pat Name: SHAAN IVY Department: Room: [facility]0T B Gender: F Preliminary School Psychologist: SHIRA : 1950 Requested By: NASRIN MARTIN Order Number: [id number] Reading MD: Kota Guevara Measurements Intervals [place] Rate: 82 P: 0 [place]: 0 QRS: 15 QRSD: 113 T: 16 QT: 427 QTc: 499 Interpretive Statements Atrial fibrillation Borderline intraventricular conduction delay Low voltage, precordial leads Borderline prolonged QT interval Artifact in lead(s) II,aVF and baseline wander in lead(s) V3 Electronically Signed On 07-31-2025 13:31:05 PST by Kota Guevara Please click the below link to view image of tracing.
== END 2025-07-29 14:10 | disposition home or self-care (01) | DRG 305 ==
LOC: ER 01:09 → OVERFLOW 05:02 → TELE-WESTW 06:20
PROVIDERS: ADMIT Nurse Practitioner Family; ATTEND Nurse Practitioner Family
DX: I16.0 Hypertensive urgency (principal); Z79.899 Other long term (current) drug therapy; I10 Essential (primary) hypertension; Z90.49 Acquired absence of other specified parts of digestive tract; Z88.5 Allergy status to narcotic agent
CPT/HCPCS: 36415; 71045; 74176; 80053; 81001; 83605; 83690; 83735; 84484; 85025; 93005; G0378; J2405